=== PATIENT | female | born 1980 | race Two or more races ===

== ENCOUNTER 2018-04-02 14:24 | Emergency (ER) | payer OTHER ==
[~2018-04-02] VITALS: Ht 160 cm; Wt 68.0 kg
[2018-04-02 15:14] VITALS: BP 154/91
--- NOTE | 2018-04-02 15:45 | PHYS DOC ---
Past Medical History Past Medical History: Anemia Additional Past Medical Histor: FIBROIDS Past Surgical History: No Surgical History Alcohol Use: None Drug Use: None Adult General Chief Complaint Chief Complaint: HEAD INJURY/TRAUMA [facility] HPI Patient is a 37 year old female who presents with on Monday she was bending down cleaning of the for injury or lifting over inside the fridge and when she stood back up she hit her head on the thermostat in the refrigerator. Patient hit the very top of her head. Patient denies LOC, nausea, dizziness, vomiting, visual changes. Patient states she has no known drug allergies and takes no medications daily. Patient states she has medical history of anemia and fibroids. She rates her pain a 2 out of 10. She states the area that she had her head is tender to touch. Patient took naproxen at noon. Review of Systems Review of Systems Constitutional: Denies fever or chills [] Eyes: Denies change in visual acuity, redness, or eye pain [] HENT: Denies nasal congestion or sore throat [] Respiratory: Denies cough or shortness of breath [] Cardiovascular: No additional information not addressed in HPI [] GI: Denies abdominal pain, nausea, vomiting, bloody stools or diarrhea [] : Denies dysuria or hematuria [] Musculoskeletal: Denies back pain or joint pain [] Integument: Denies rash or skin lesions [] Neurologic: Headache, Denies focal weakness or sensory changes [] Endocrine: Denies polyuria or polydipsia [] All other systems were reviewed and found to be within normal limits, except as documented in this note. Allergies Allergies Allergies Coded Allergies Type Severity Reaction Last Updated Verified No Known Drug Allergies 04/02/18 No Physical Exam Physical Exam Constitutional: Well developed, well nourished, no acute distress, non-toxic appearance. [] HENT: Normocephalic, atraumatic, Slight pinkness to her headache from impact, bilateral external ears normal, oropharynx moist, no oral exudates, nose normal. [] Eyes: PERRLA, EOMI, conjunctiva normal, no discharge. [] Neck: Normal range of motion, no tenderness, supple, no stridor. [] Cardiovascular:Heart rate regular rhythm, no murmur [] Lungs & Thorax: Bilateral breath sounds clear to auscultation [] Abdomen: Bowel sounds normal, soft, no tenderness, no masses, no pulsatile masses. [] Skin: Warm, dry, no erythema, no rash. [] Back: No tenderness, no CVA tenderness. [] Extremities: No tenderness, no cyanosis, no clubbing, ROM intact, no edema. [] Neurologic: Alert and oriented X 3, normal motor function, normal sensory function, no focal deficits noted. [] Psychologic: Affect normal, judgement normal, mood normal. [] Current Patient Data Vital Signs Vital Signs Date Time Temp Pulse Resp B/P (MAP) Pulse Ox O2 Delivery O2 Flow Rate FiO2 04/02/18 15:14 98.7 76 16 154/91 (112) 100 Room Air 98.7 EKG EKG [] Radiology/Procedures Radiology/Procedures CT Head Impressions: [facility] [address] [place], [place] [id number] IMAGING REPORT Signed PATIENT: JANA CHAVIRA ACCOUNT: [id number] : 1980 LOCATION: ER AGE: 37 SEX: F EXAM STATUS: REG ER ORD. PHYSICIAN: MIGUEL JIMENEZ APRN REASON: head injury, HIT HEAD ON FRIDGE, NAUSEA, TINDER PROCEDURE: CT HEAD WO CONTRAST PQRS Compliance Statement: One or more of the following individualized dose reduction techniques were utilized for this examination: 1. Automated exposure control 2. Adjustment of the mA and/or kV according to patient size 3. Use of iterative reconstruction technique CT HEAD WITHOUT CONTRAST History: head injury, HIT HEAD ON FRIDGE, NAUSEA, TENDER Comparison: None. Procedure: Axial images are obtained of the head from the skull base through the vertex without IV contrast. Findings: The ventricles and sulci are normal for the patient's age. No mass-effect, midline shift, hemorrhage, extra-axial fluid collection, or obvious acute infarction is identified. Basilar cisterns are patent. Bone windows demonstrate no acute calvarial abnormality. The visualized paranasal sinuses are clear. Mastoid air cells are well aerated. IMPRESSION: No acute intracranial abnormality. Electronically signed by: Lokesh Bai MD (04/02/2018 3:48 PM) [id number] DICTATED and SIGNED BY: LOKESH BAI MD DATE: 04/02/18 1544 Course & Med Decision Making Course & Med Decision Making Patient is a 37 year old female who presents with on Monday she was bending down cleaning of the for injury or lifting over inside the fridge and when she stood back up she hit her head on the thermostat in the refrigerator. Patient hit the very top of her head. Patient denies LOC, nausea, dizziness, vomiting, visual changes. Patient states she has no known drug allergies and takes no medications daily. Patient states she has medical history of anemia and fibroids. She rates her pain a 2 out of 10. She states the area that she had her head is tender to touch. Patient took naproxen at noon. Patient is alert and oriented. Patient denies any numbness or tingling. She is neurologically intact. Patient walks with a steady gait. Upon examination she has a pinkish area on the top of her head where she hit her head there is no bump. Patient does state that the area is tender to palpation. PERRLA. Patient states that she has a slight bit of neck pain on the left side of her neck but that she doesn't really notice it and she does not feel that she needs a states cervical spine x-ray.Lungs clear to auscultation. Heart rate regular and without murmur. Application Integration Specialist and strengths are equal in all extremities. CT head shows no acute findings. Patietn to continue taking naproxen or Ibuprofen. Follow up with her primary care doctor. Patient return to the ED if she begins having nausea vomiting, visual changes, dizziness and any syncopal episodes. Dragon Disclaimer Dragon Disclaimer This electronic medical record was generated, in whole or in part, using a voice recognition dictation system. Departure Departure Impression: Primary Impression: Head injury Disposition: 01 HOME, SELF-CARE Condition: STABLE Referrals: UNKNOWN PCP NAME (PCP) Patient Instructions: Head Injury, Adult Additional Instructions: Patient return to the ED if she begins having nausea vomiting, visual changes, dizziness and any syncopal episodes. Scripts Hydrocodone/Apap 5-325 (NORCO 5-325 TABLET) 1 Each Tablet 1 TAB PO PRN Q6HRS PRN for PAIN, #8 TAB 0 Refills Prov: AUBREYUSMIGUEL De Leon COMMERCIAL DEVELOPMENT MANAGER 04/02/18 Problem Qualifiers Primary Impression: Head injury Encounter type: initial encounter Qualified Codes: S09.90XA - Unspecified injury of head, initial encounter MIGUEL JIMENEZ COMMERCIAL DEVELOPMENT MANAGER Apr 02, 2018 15:45
--- NOTE | 2018-04-02 15:51 | RAD ---
PQRS Compliance Statement: One or more of the following individualized dose reduction techniques were utilized for this examination: 1. Automated exposure control 2. Adjustment of the mA and/or kV according to patient size 3. Use of iterative reconstruction technique CT HEAD WITHOUT CONTRAST History: head injury, HIT HEAD ON FRIDGE, NAUSEA, TENDER Comparison: None. Procedure: Axial images are obtained of the head from the skull base through the vertex without IV contrast. Findings: The ventricles and sulci are normal for the patient's age. No mass-effect, midline shift, hemorrhage, extra-axial fluid collection, or obvious acute infarction is identified. Basilar cisterns are patent. Bone windows demonstrate no acute calvarial abnormality. The visualized paranasal sinuses are clear. Mastoid air cells are well aerated. IMPRESSION: No acute intracranial abnormality. Electronically signed by: Lokesh Bai MD (04/02/2018 3:48 PM) [id number]
[2018-04-02] MEDS ORDERED: HYDR-971 PO (16:14)
== END 2018-04-02 16:22 | disposition home or self-care (01) ==
LOC: ER 14:24
DX: S09.90XA Unspecified injury of head, initial encounter (principal); W22.8XXA Striking against or struck by other objects, initial encounter; Y93.89 Activity, other specified; Y92.89 Other specified places as the place of occurrence of the external cause; Y99.8 Other external cause status
CPT/HCPCS: 70450; 99284